=== PATIENT | female | born 2000 | race Two or more races ===

== ENCOUNTER 2018-02-12 16:28 | Emergency (ER) | payer MEDICAID ==
[~2018-02-12] VITALS: Ht 165.1 cm; Wt 74.8 kg
--- NOTE | 2018-02-12 17:16 | NUR ---
Dr Morse at the bedside for MSE.
[2018-02-12] MEDS ORDERED: IBUPROFEN 600 MG TABLET PO ONE (17:30)
[2018-02-12] MEDS ORDERED: IBUPROFEN 600 MG TABLET ONE (17:57)
[2018-02-12] MEDS ORDERED: TDAP DIPH,PERTUSS,TET VAC/PF 0.5 ML DISP.SYRIN IM ONE ×2 (18:00→18:14)
[2018-02-12 18:33] VITALS: BP 112/78
--- NOTE | 2018-02-12 18:33 | NUR ---
Patient discharged to home in stable conditon. Written and verbal after care instructions given. Patient verbalizes understanding of instructions.
== END 2018-02-12 18:34 | disposition home or self-care (01) ==
LOC: ER 16:32
DX: S67.190A Crushing injury of right index finger, initial encounter (principal); S67.192A Crushing injury of right middle finger, initial encounter; Z88.0 Allergy status to penicillin; W23.0XXA Caught, crushed, jammed, or pinched between moving objects, initial encounter; Y93.89 Activity, other specified; Y92.89 Other specified places as the place of occurrence of the external cause; Y99.8 Other external cause status
CPT/HCPCS: 29130; 73140; 90471; 90715; 99284; A4663